=== PATIENT | male | born 1980 | race Caucasian/White ===

== ENCOUNTER 2018-01-01 07:45 | Emergency (ER) | payer OTHER ==
[2018-01-01 07:52] VITALS: BP 135/97
[2018-01-01] MEDS ORDERED: PROPARACAINE 0.5% OPHTH DROPS 15 ML RIGHTEYE STA (08:13)
--- NOTE | 2018-01-01 08:22 | ED Physician Documentation ---
History of Present Illness - Stated complaint Stated Complaint: EYE IRRITATION - Chief complaint Chief Complaint: Heent - Additonal information Additional information: hx from pt 37 male wears glasses no contacts had FB sensation yesterday no grinding or wleding, does not now what might have been in his eye washed eye out FB sensation gone but eye still red and irriated he took allergy meds but sx persisted today with watering and crust and erythema Review of Systems Constitutional: denies: Fever Eyes: reports: Irritation PD PAST MEDICAL HISTORY - Past Medical History Past Medical History: No - Past Surgical History General: Bowel surgery - Present Medications Home Medications: Ambulatory Orders Medication Instructions Recorded Confirmed Erythromycin Base [Erythromycin] 1 applic OP Q4H #1 tub 01/01/18 - Allergies Allergies/Adverse Reactions: Allergies Allergy/AdvReac Type Severity Reaction Status Date / Time No Known Drug Allergies Allergy Verified 01/01/18 07:52 - Social History Does the pt smoke?: No Smoking Status: Never smoker Does the pt drink ETOH?: No Does the pt have substance abuse?: No PD ED PE NORMAL - Vitals Vital signs reviewed: Yes - HEENT HEENT: PERRL, EOMI, Other (R eye injected, watering, no dc at this time, no FB seen even under lids, no perorbital cellulitis, no proptosis, cornea not hazy, globe soft, with flouresceinseveral small horizontal scleral abrsions seen, relief of sx with proparacaine) Results - Vitals Vitals: Vital Signs - 24 hr 01/01/18 07:50 Temperature 36.4 C L Heart Rate 79 Respiratory 18 Rate Blood Pressure 135/97 H O2 Saturation 99 Oxygen O2 Source Room air PD MEDICAL DECISION MAKING - Sepsis Event Vital Signs: Vital Signs - 24 hr 01/01/18 07:50 Temperature 36.4 C L Heart Rate 79 Respiratory 18 Rate Blood Pressure 135/97 H O2 Saturation 99 Oxygen O2 Source Room air Departure - Departure Disposition: 01 Home, Self Care Clinical Impression: Eye abrasion Qualifiers: Encounter type: initial encounter Laterality: right Qualified Code(s): S05.8X1A - Other injuries of right eye and orbit, initial encounter Condition: Good Instructions: ED Eye Injury Corneal Abrasion Prescriptions: Erythromycin Base [Erythromycin] 1 applic OP Q4H #1 tub Comments: Apply the ointment to your eye four times a day. Motrin and cool compresses as needed for discomfort Do not wear contacts until better Expect you to be better in 24-48 hr Return if worse
[2018-01-01] MEDS ORDERED: ERYTHROMYCIN OPHTH OINT 1 GM TUBE RIGHTEYE STA (08:25)
== END 2018-01-01 08:34 | disposition home or self-care (01) ==
LOC: ED 07:45
DX: S05.8X1A Other injuries of right eye and orbit, initial encounter (principal); X58.XXXA Exposure to other specified factors, initial encounter
CPT/HCPCS: 99283; J3490